=== PATIENT | female | born 1990 | race Caucasian/White ===

== ENCOUNTER 2019-04-06 15:51 | Emergency (ER) | payer SELFPAY ==
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
--- NOTE | 2019-04-06 16:08 | NUR ---
Refusal to sign the Left without being seen form.
--- NOTE | 2019-04-06 16:08 | NUR ---
Pt departed Left Without being seen by Dr, Triage incomplete/no assessments allowed. Called to [facility] to [facility] to advise of the situation if they arrive.
--- NOTE | 2019-04-06 18:00 | NUR ---
Chris at Poison Control calls to get update from his partner Mia sending this pt to ER. Advised of brief contact with patient @ 1600 having a panic/PTSD attack combined and ran from rooms with mother unable to convince patient to stay. Mother going to attempt to calm patient and get her to a different ER going to [facility] later she stated. Poison control plan on following up on the case.
== END 2019-04-06 16:08 | disposition left against medical advice (07) ==
LOC: ER FS 15:53
DX: T59.7X4A Toxic effect of carbon dioxide, undetermined, initial encounter (principal)